=== PATIENT | female | born 1935 | race Caucasian/White ===

== ENCOUNTER → 2016-12-25 | Outpatient (CLI) | payer OTHER ==
[~2016-12-25] VITALS: Ht 162.6 cm; Wt 55.8 kg
[~2016-12-25] MED LIST: ADULT LOW DOSE81 MG PO; ALIGN4 MG PO; CINNAMON500 MG PO; CLARITIN10 MG PO; ESTRACE1 MG PO; FLAX SEED OIL1000 MG PO; FLONASE 0.05%50 MCG NASAL; GLIPIZIDE ER5 MG PO; GLUCOTROL5 MG PO; KEFLEX500 MG PO; LIORESAL 10 MG10 MG PO; METFORMIN HCL500 MG PO; MIRALAX255 GM PO; PRILOSEC 20 MG20 MG PO; PRILOSEC40 MG PO; TOPROL XL25 MG PO; VENTOLIN HFA 1818 GM INH; VITAMIN D1000 UNI1 PO; ZADITOR5 M1 OPHTHALMIC; ZETIA10 MG PO; [UNRECOGNIZED DRUG - OTHER] PO
--- NOTE | ~2016-12-25 | P ---
[facility] [place] [address] PROCEDURE REPORT Name: YENNIFER SALINAS [id number] Admission: 12/25/16 Attend Phys: Sanju Lala Discharge: Date of : 39 Report #: [id number] THIS REPORT FOR: //name// CC: Sanju Fuentes MD DATE OF SERVICE: 12/25/2016 PROCEDURE PERFORMED: Colonoscopy. HISTORY OF PRESENT ILLNESS: The patient is a 81-year-old female with a mild anemia, reportedly Hemoccult negative stool. EGD was just performed, which showed mild gastritis. No evidence of bleeding. Plan is for colonoscopy. DESCRIPTION OF PROCEDURE: The risks and benefits of the procedure were explained to the patient, those risks including but not limited to bleeding, perforation, the risk of sedation. She understood these risks and gave informed consent. Sedation was given using propofol per anesthesia. Next, a digital rectal exam was initially performed, which was normal. Next, using a standard Fujinon colonoscope, the scope was placed in the patient's anus and advanced under direct vision to the cecum. The overall prep was excellent. The cecum and ileocecal valve were normal in appearance. Ascending, transverse, descending and sigmoid colon were all normal. The rectal mucosa was normal. On retroflexion, small nonbleeding internal hemorrhoids were noted, otherwise normal colonoscopy. The scope was then withdrawn and the procedure terminated. The patient tolerated the procedure well. IMPRESSION: 1. Small nonbleeding internal hemorrhoids. 2. Otherwise, normal colonoscopy. RECOMMENDATIONS: 1. We will await biopsies from upper endoscopy today, rule out the possibility of celiac sprue. 2. Advise the patient to start oral iron and repeat hemoglobin in the next 2 months. Thank you for allowing me to participate in her care. <ELECTRONICALLY SIGNED> By: Sanju Angel MD 12/27/16 0818 [id number] Sanju Angel MD /nt
--- NOTE | ~2016-12-25 | S ---
[facility] [place] [address] SURGICAL PATH RPT PROCEDURE Name: YENNIFER SALINASLENE Room #: REG Cecile Narvaez#: [id number] Admission: 12/25/16 Date of : 39 Discharge: Report #: [id number] Path Case #: [id number] PATHOLOGY REPORT COLLECTION DATE: 12/25/2016 RECEIVED DATE: 12/25/2016 SUBMITTING PHYS: Dr. Sanju Angel OTHER PHYS: Dr. Shoshana Fuentes SPECIMEN(S) RECEIVED: A.Bx of duodenum B.Bx of gastritis * * * * * * * * * * * * FINAL DIAGNOSIS: A. "Bx of duodenum", biopsy: - Small bowel / duodenal mucosa with minimal histologic alterations; no evidence of celiac sprue. B. "Bx of gastritis", biopsy: -Gastric mucosa with mild chronic gastritis and focal intestinal metaplasia; no dysplasia seen. - Negative H. pylori immunohistochemical stain (block B1); control reacted appropriately. (CLW; 12/27/16) PATHOLOGIST: Autumn Hassan M.D. REPORT ELECTRONICALLY SIGNED BY: Autumn Hassan M.D. DATE/TIME: 12/27/2016 21:53 * * * * * * * * * * * * GROSS PATHOLOGY: A. Received in formalin labeled "Yennifer Gamt, biopsy of duodenum to R/O celiac," are four segments of irvin soft tissue measuring 1.0 x 1.0 x 0.1 cm in aggregate dimensions and ranging from 0.2 to 0.6 cm in maximum dimension. The specimen is submitted entirely in cassette A1. B. Received in formalin labeled "Yennifer Salinas, biopsy of gastritis," are three segments of irvin soft tissue measuring 0.8 x 0.8 x 0.1 cm in aggregate dimensions and ranging from 0.4 to 0.5 cm in maximum dimension. The specimen is submitted entirely in cassette B1. (CAA; 12/26/2016) CLINICAL HISTORY: Anemia INITIAL CPT CODE(S): [address] [address] SURGICAL PATH RPT PROCEDURE Name: YENNIFER SALINAS ADDIE [facility] [id number] Admission: 12/25/16 Date of : 39 Discharge: Report #: [id number] Path Case #: [id number]; [id number] B; [id number], [id number] Professional services performed by [facility] at [address] , [place] [address] Technical services performed by [facility] at [address] [place] [address], [address], [place] [address]. [facility] [address] PHONE: [phone] DIRECTOR: Ben Allen M.D. * * * END OF REPORT * * *
--- NOTE | ~2016-12-25 | P ---
[facility] [place] [address] PROCEDURE REPORT Name: YENNIFER SALINAS [facility] [id number] Admission: 12/25/16 Attend Phys: Sanju Lala Discharge: Date of : 39 Report #: [id number] THIS REPORT FOR: //name// CC: Sanju Fuentes MD DATE OF SERVICE: 12/25/2016 PROCEDURE PERFORMED: Upper endoscopy with biopsies. HISTORY OF PRESENT ILLNESS: The patient is a 81-year-old female with a history of anemia, seen in the office on 10/29/2016. Her previous visit was in 2014. At that time, she had a Hemoccult positive stool and I recommended EGD and colonoscopy, but that was never performed or has never scheduled by the patient. She denies any obvious blood in her stools. She reportedly has had a recent Hemoccult test that was negative. Recent hemoglobin 11.4. She does have a history of gastroesophageal reflux disease, takes b.i.d. PPI therapy. She is also on aspirin. She denies any dysphagia. No family history of colon cancer. Plan is for EGD and colonoscopy. PROCEDURE: The risks and benefits of the procedure were explained to the patient, those risks including, but not limited to bleeding, perforation, the risk of sedation. She understood these risks and gave informed consent. Sedation was given using propofol per anesthesia. Next, using a standard Fujinon upper endoscope, the scope was placed in the patient's mouth and advanced under direct vision through the esophagus, stomach and into the second portion of the duodenum. The esophagus was normal throughout. The GE junction was normal. There was a mild diffuse gastritis. No evidence of erosions or ulcerations. No bleeding. Biopsies were obtained to rule out H. pylori. The pylorus was normal and patent. The duodenal bulb, first and second portion were all normal. Biopsies were obtained to rule out the possibility of celiac sprue, the patient has a history of anemia. Scope was then withdrawn and the procedure terminated. The patient tolerated the procedure well. IMPRESSION: 1. Mild diffuse gastritis. 2. Otherwise, normal upper endoscopy. RECOMMENDATIONS: 1. Await biopsy results. 2. Continue PPI therapy. 3. We will proceed with colonoscopy next today. [address] [address] PROCEDURE REPORT Name: YENNIFER SALINAS Room #: REG [facility] Solange#: [id number] Admission: 12/25/16 Attend Phys: Sanju Lala Discharge: Date of : 39 Report #: [id number] Thank you for allowing me to participate in her care. <ELECTRONICALLY SIGNED> By: Sanju Angel MD 12/27/16 0818 [id number] 30 Sanju Angel MD /nt
== END ==
LOC: GI 07:17
DX: D64.9 Anemia, unspecified (principal); K64.8 Other hemorrhoids; K29.60 Other gastritis without bleeding; I10 Essential (primary) hypertension; E78.00 Pure hypercholesterolemia, unspecified; G47.33 Obstructive sleep apnea (adult) (pediatric); K21.9 Gastro-esophageal reflux disease without esophagitis; E11.9 Type 2 diabetes mellitus without complications; I48.91 Unspecified atrial fibrillation; J45.909 Unspecified asthma, uncomplicated
CPT/HCPCS: 62110; 62900